=== PATIENT | male | born 1995 | race Caucasian/White ===

== ENCOUNTER → 2024-07-05 | Outpatient (CLI) | payer MEDICAID ==
--- NOTE | 2024-07-05 15:31 | CT ---
EXAMINATION TYPE: CT abdomen wo con CT DLP: 559 mGycm, Automated exposure control for dose reduction was used. DATE OF EXAM: 07/05/2024 3:23 PM COMPARISON: None CLINICAL INDICATION:Male, 29 years old with history of R23.2 FLUSHING; c/o hot flashes and low testos terone levels TECHNIQUE: Standard CT of the abdomen without IV or oral contrast. Lack of IV or oral contrast limi ts evaluation of solid and hollow organ viscera. Coronal and sagittal reformats were performed. FINDINGS: LOWER CHEST: Lingular 2.7 mm pulmonary nodule (series 4, image 5). Right middle lobe 3.9 mm pulmonary nodule (series 4, image 5). Mild bilateral gynecomastia. ABDOMEN LIVER: Unremarkable noncontrast appearance GALLBLADDER AND BILE DUCTS: Unremarkable noncontrast appearance PANCREAS: Unremarkable noncontrast appearance SPLEEN: Unremarkable noncontrast appearance ADRENAL GLANDS: Unremarkable noncontrast appearance. KIDNEYS AND URETERS: No evidence of hydronephrosis or renal calculus. STOMACH AND BOWEL: Stomach and duodenum are unremarkable. The appendix is within normal limits. No fo gr bowel wall thickening or surrounding inflammatory changes. No evidence of bowel obstruction. PERITONEUM: No evidence of pneumoperitoneum or free fluid. VASCULATURE: No evidence of aortic aneurysm. MUSCULOSKELETAL: No acute osseous abnormalities LYMPH NODES: No gross evidence for lymphadenopathy. SOFT TISSUE/ABDOMINAL WALL: Tiny fat filled umbilical hernia. IMPRESSION: 1. No acute abdominal process within the limitations of a noncontrast exam. 2. Couple of pulmonary nodules measuring less than 4 mm. According to Fleischner criteria, in a low- risk patient no follow up is recommended. In a high-risk patient consider optional CT chest in 12 mon ths. [facility], , 07/05/2024 3:29 PM
== END | disposition home or self-care (01) ==
LOC: RADCTMAIN 14:58
PROVIDERS: ATTEND Family Medicine
DX: R23.2 Flushing (principal); R91.1 Solitary pulmonary nodule
CPT/HCPCS: 74150